=== PATIENT | male | born 1935 | race Caucasian/White ===

== ENCOUNTER 2016-04-15 14:36 | Outpatient (RCR) | payer OTHER | END 2016-05-06 | disposition home or self-care (01) | LOC: PTY 14:36 | DX: M47.16 Other spondylosis with myelopathy, lumbar region (principal); E11.9 Type 2 diabetes mellitus without complications; M81.0 Age-related osteoporosis without current pathological fracture; M47.892 Other spondylosis, cervical region; M47.896 Other spondylosis, lumbar region | CPT/HCPCS: 97110; G0283 ==